=== PATIENT | female | born 1970 | race Caucasian/White ===

== ENCOUNTER 2018-11-14 23:29 | Emergency (ER) | payer MEDICAID ==
[~2018-11-14] VITALS: Ht 172.7 cm; Wt 81.8 kg
[~2018-11-14 23:29] MED LIST: CLIN300C19 PO
[2018-11-14 23:34] VITALS: BP 148/91
--- NOTE | 2018-11-14 23:54 | NUR ---
pt c/o right arm pain x 2 months. Hurts to lift/move it at the shoulder.
[2018-11-15] MEDS ORDERED: METH4TAB3 PO (00:28)
[2018-11-15] MEDS ORDERED: ketorolac tromethamine 15mg/ml inj. IM ONE (00:30)
[2018-11-15] MEDS ORDERED: triamcinolone acetonide 40mg/ml inj IM ONE (00:30)
== END 2018-11-15 00:46 | disposition home or self-care (01) ==
LOC: ER 23:30
DX: M75.22 Bicipital tendinitis, left shoulder (principal); F31.9 Bipolar disorder, unspecified; Z88.1 Allergy status to other antibiotic agents; Z79.2 Long term (current) use of antibiotics; Z79.899 Other long term (current) drug therapy
CPT/HCPCS: 96372; 99283; J1885; J3301

== ENCOUNTER 2020-01-11 10:09 | Emergency (ER) | payer MEDICAID ==
[~2020-01-11] VITALS: Ht 172.7 cm; Wt 86.4 kg
[~2020-01-11 10:09] MED LIST changes: +METH4TAB3 PO
[2020-01-11 10:23] VITALS: BP 146/81
== END 2020-01-11 11:13 | disposition home or self-care (01) ==
LOC: ER 10:10
DX: R06.02 Shortness of breath (principal); M79.10 Myalgia, unspecified site; R11.2 Nausea with vomiting, unspecified; Z20.828 Contact with and (suspected) exposure to other viral communicable diseases; F31.9 Bipolar disorder, unspecified; Z88.0 Allergy status to penicillin; Z88.1 Allergy status to other antibiotic agents; Z79.2 Long term (current) use of antibiotics; Z79.899 Other long term (current) drug therapy
CPT/HCPCS: 36415; 99281

== ENCOUNTER 2020-07-11 12:17 | Inpatient (IN) | payer MEDICAID ==
[2020-07-11] VITALS (11 sets, daily range): BP systolic 113–153; BP diastolic 65–98
[~2020-07-11] VITALS: Ht 172.7 cm; Wt 85.0 kg
[2020-07-11 12:59] LABS: BASOPHILS # (AUTO) 0.1 X10'3 (0-0.2); EOSINOPHILS % (AUTO) 1.5 % (0-6); LYMPHOCYTES # (AUTO) 0.6 X10'3 (1.1-4.8); LYMPHOCYTES % (AUTO) 19.4 % (21-51); MEAN CORPUSCULAR HEMOGLOBIN 19.7 PG (27.0-31.0); MEAN CORPUSCULAR HGB CONC 29.4 g/dL (33.0-36.5); MEAN CORPUSCULAR VOLUME 67.1 FL (78-98); MEAN PLATELET VOLUME 8.8 FL (7.4-10.4); MONOCYTES # (AUTO) 0.3 X10'3 (0-0.9); MONOCYTES % (AUTO) 10.3 % (2-12); NEUTROPHILS % (AUTO) 66.3 % (42-75); PLATELET COUNT 183 X10'3 (140-440); RED BLOOD COUNT 2.51 X10'6 (4.20-5.60); RED CELL DISTRIBUTION WIDTH 21.7 % (11.5-14.5); WHITE BLOOD COUNT 3.1 X10'3 (4.5-11.0)
[2020-07-11 13:03] LABS: BASOPHILS % (AUTO) 1.8 % (0-1); HEMATOCRIT 16.9 % (35.0-45.0)
[2020-07-11 13:10] LABS: ALANINE AMINOTRANSFERASE 20 U/L (12-78); ALBUMIN 3.3 G/DL (3.4-5.0); ALBUMIN/GLOBULIN RATIO 1.1 (1.1-1.5); ALKALINE PHOSPHATASE 49 IU/L (46-116); ANION GAP 9 (8-16); ASPARTATE AMINO TRANSFERASE 14 U/L (10-37); BILIRUBIN,TOTAL 0.3 MG/DL (0.1-1.0); BLOOD UREA NITROGEN 13 MG/DL (7-18); BUN/CREATININE RATIO 21.7 (6.6-38.0); CALCIUM 8.3 MG/DL (8.5-10.1); CHLORIDE 107 MMOL/L (99-107); GLUCOSE 88 MG/DL (70-104); POTASSIUM 3.7 MMOL/L (3.5-5.1); SODIUM 140 MMOL/L (135-145); TOTAL CARBON DIOXIDE 24.2 MMOL/L (24-32); TOTAL PROTEIN 6.4 G/DL (6.4-8.2); eGFR > 90 ML/MIN
[2020-07-11 13:30] LABS: ANISOCYTOSIS 3+; ELLIPTOCYTES FEW; HYPOCHROMASIA 2+; MICROCYTOSIS 2+; PLATELET ESTIMATE NORMAL
[2020-07-11 13:31] LABS: LARGE PLATELETS FEW; POLYCHROMASIA 1+
[2020-07-11 13:32] LABS: TEAR DROP CELLS FEW
[2020-07-11] MEDS ORDERED: normal saline 1000ML IV soln IV ONE (14:05)
[2020-07-11] MEDS ORDERED: pantoprazole IV 80 MG in normal saline 100ml IV soln 100 ML IV ONE (14:05)
[2020-07-11] MEDS ORDERED: pantoprazole 40MG/NS 100ML BAG 100 ML IV ONE ×2 (14:10→14:30)
[2020-07-11 14:49] LABS: CLARITY,URINE SLIGHTLY CLOUDY (Clear); COLOR,URINE STRAW (Yellow); GLUCOSE, URINE NEGATIVE (Neg); KETONES,URINE NEGATIVE (Neg); LEUKOCYTE ESTERASE ,URINE NEGATIVE (Neg); NITRITES, URINE NEGATIVE (Neg); OCCULT BLOOD,URINE NEGATIVE (Neg); PH,URINE 5.5 (4.8-8.0); PROTEIN,URINE NEGATIVE (Neg); UROBILINOGEN,URINE 0.2 E.U/dL (0.2-1.0)
[2020-07-11 14:50] LABS: UA COLLECTION TYPE CLN CATCH MIDSTREAM
[2020-07-11 14:57] LABS: SQUAMOUS EPITHELIAL CELL,UR MANY /LPF (FEW)
[2020-07-11 14:58] LABS: BACTERIA,URINE FEW /HPF (Neg); RBC,URINE NONE SEEN /HPF (0-2); WBC,URINE 0-4 /HPF (0-4)
[2020-07-11] MEDS ORDERED: acetaminophen 325mg tablet PO PRN ×2 (15:40)
[2020-07-11] MEDS ORDERED: HYDROcodone/acetaminophen 10/325mg tab PO PRN (15:40)
[2020-07-11] MEDS ORDERED: magnesium hydroxide 30ml (MOM) UD suspension PO PRN (15:40)
[2020-07-11] MEDS ORDERED: ondansetron/PF 4mg/2ml inj IV PRN (15:40)
[2020-07-11] MEDS ORDERED: HYDROcodone/acetaminophen 5mg/325mg tablet PO PRN (15:40)
[2020-07-11] MEDS ORDERED: morphine 2 MG/ML inj. syringe IV PRN ×2 (15:40)
[2020-07-11] MEDS ORDERED: mag hydrox/Alum hydrox/simeth 30ml oral suspension PO PRN (15:40)
--- NOTE | 2020-07-11 15:45 | NUR ---
Dr Amezcua at bedside.
[2020-07-11] MEDS ORDERED: CHOL100046 PO (15:53)
[2020-07-11] MEDS ORDERED: AMBEREN PO (15:53)
[2020-07-11] MEDS ORDERED: iohexol 300mg/ml 100ml inj. ONE (16:36)
--- NOTE | 2020-07-11 17:02 | NUR ---
Patient in room [facility]. I have received report from EULA NOLASCO FROM ER and had the opportunity to ask questions and assume patient care.
--- NOTE | 2020-07-11 18:02 | NUR ---
Problems reprioritized. Patient report given, questions answered & plan of care reviewed with EULA STEVENSON.
[2020-07-12] VITALS (9 sets, daily range): BP systolic 124–163; BP diastolic 74–95
[2020-07-12 06:13] LABS: ALBUMIN 2.8 G/DL (3.4-5.0); ANION GAP 9 (8-16); BLOOD UREA NITROGEN 9 MG/DL (7-18); BUN/CREATININE RATIO 13.2 (6.6-38.0); CHLORIDE 109 MMOL/L (99-107); CREATININE 0.68 MG/DL (0.40-0.90); GLUCOSE 87 MG/DL (70-104); POTASSIUM 3.8 MMOL/L (3.5-5.1); SODIUM 141 MMOL/L (135-145); TOTAL CARBON DIOXIDE 22.6 MMOL/L (24-32); eGFR > 90 ML/MIN
[2020-07-12 06:16] LABS: BASOPHILS # (AUTO) 0.1 X10'3 (0-0.2); BASOPHILS % (AUTO) 1.8 % (0-1); EOSINOPHILS # (AUTO) 0.1 X10'3 (0-0.9); EOSINOPHILS % (AUTO) 2.3 % (0-6); LYMPHOCYTES # (AUTO) 0.7 X10'3 (1.1-4.8); MEAN CORPUSCULAR HEMOGLOBIN 22.4 PG (27.0-31.0); MEAN CORPUSCULAR HGB CONC 31.2 g/dL (33.0-36.5); MEAN CORPUSCULAR VOLUME 71.7 FL (78-98); MONOCYTES # (AUTO) 0.5 X10'3 (0-0.9); MONOCYTES % (AUTO) 10.7 % (2-12); NEUTROPHILS # (AUTO) 3.4 X10'3 (1.8-7.7); NEUTROPHILS % (AUTO) 70.2 % (42-75); PLATELET COUNT 149 X10'3 (140-440); RED CELL DISTRIBUTION WIDTH 23.3 % (11.5-14.5); WHITE BLOOD COUNT 4.8 X10'3 (4.5-11.0)
[2020-07-12 06:21] LABS: HEMOGLOBIN 6.7 g/dl (12.0-16.0)
[2020-07-12 06:22] LABS: HEMATOCRIT 21.5 % (35.0-45.0)
--- NOTE | 2020-07-12 06:24 | NUR ---
Patient in room [facility]. I have received report from Jason FORDE and had the opportunity to ask questions and assume patient care.
--- NOTE | 2020-07-12 06:29 | NUR ---
Problems reprioritized. Patient report given, questions answered & plan of care reviewed with KANNAN. Addendum: 07/12/20 at 0630 by Dustin Edmonds RN Amended: Links added.
[2020-07-12 09:22] LABS: ANISOCYTOSIS 3+; MICROCYTOSIS 1+; PLATELET ESTIMATE NORMAL
[2020-07-12 09:23] LABS: ELLIPTOCYTES FEW; SCHISTOCYTES FEW
[2020-07-12 09:24] LABS: HYPOCHROMASIA 2+
--- NOTE | 2020-07-12 09:58 | NUR ---
Was unable to reach Dr. Hansen by phone at [phone]. Voicemail was full. Was calling to confirm need for MRI. Addendum: 07/12/20 at 1110 by Veronica Godienz RN Talk to Dr. Hansen and confirmed there is no longer a need for MRI due to CT with contrast being done. Informed her that patient was receiving 1 unit of PRBC. H/H 6.7/21.5.
--- NOTE | 2020-07-12 14:25 | NUR ---
PAGER ID: [phone] MESSAGE: [phone] RE: [facility] Patient Blood transfusion ended. Would you like a H&H drawn in 2 hours?
[2020-07-12] MEDS ORDERED: FERR-119 PO (17:29)
--- NOTE | 2020-07-12 18:49 | NUR ---
Patient was educated on follow up, worsening symptoms, and medications. Two Iv's were removed and canula was intact. Patient was taken down with by patient child care centre director.
--- NOTE | 2020-07-13 14:05 | NUR ---
CASE MANAGEMENT DISCHARGE FOLLOW UP: T/c to pt, no answer, left message requesting callback. Addendum: 07/13/20 at 1416 by Mago Gallegos RN [id number] Received return call from pt. Reports that she is doing good, some occasional SOB with exertion that resolves quickly with rest; denies CP, fever/chills, dizziness. Verbalizes understanding of s/sx requiring further evaluation/emergent assistance. Verbalizes understanding of medications, educated pt on avoiding foods high in calcium at time of iron supplementation and instead choosing items high in Vitamin C for better iron absorption, she verbalizes understanding. Verbalizes compliance with MD discharge instructions. Verbalizes understanding of the importance in making/keeping follow-up appointments, will see Dr Hansen tomorrow. Pt states that she will also be going back to work tomorrow. States no further questions/concerns at this time.
== END 2020-07-12 18:04 | disposition home or self-care (01) | DRG 663 ==
LOC: ER 12:17 → ED HOLD 15:36 → SUR 3N 17:41
PROVIDERS: ADMIT Internal Medicine; ATTEND Internal Medicine
PROC: 30233N1 Transfusion of Nonautologous Red Blood Cells into Peripheral Vein, Percutaneous Approach (ICD-10-PCS; principal; 2020-07-11)
PROC: BW211ZZ Computerized Tomography (CT Scan) of Abdomen and Pelvis using Low Osmolar Contrast (ICD-10-PCS; 2020-07-11)
DX: D62 Acute posthemorrhagic anemia (principal); D25.9 Leiomyoma of uterus, unspecified; F32.9 Major depressive disorder, single episode, unspecified; K44.9 Diaphragmatic hernia without obstruction or gangrene; R55 Syncope and collapse; N93.9 Abnormal uterine and vaginal bleeding, unspecified; K57.90 Diverticulosis of intestine, part unspecified, without perforation or abscess without bleeding; N92.0 Excessive and frequent menstruation with regular cycle; Z88.1 Allergy status to other antibiotic agents; Z88.8 Allergy status to other drugs, medicaments and biological substances; Z98.51 Tubal ligation status; Z79.899 Other long term (current) drug therapy
CPT/HCPCS: 36415; 36430; 71045; 74177; 76856; 80048; 80053; 81001; 85008; 85025; 85610; 86885; 86900; 86901; 86920; 87081; 87635; 96365; 99291; C9113; G0378; J7030; P9016; Q9967

== ENCOUNTER 2022-03-15 14:19 | Emergency (ER) | payer MEDICAID ==
[~2022-03-15] VITALS: Ht 172.7 cm; Wt 86.4 kg
[~2022-03-15 14:19] MED LIST changes: +AMBEREN PO; +CHOL100046 PO; -CLIN300C19 PO; +FERR-119 PO; -METH4TAB3 PO
[2022-03-15 14:49] VITALS: BP 169/98
[2022-03-15 19:28] LABS: BASOPHILS % (AUTO) 0.4 % (0-1); EOSINOPHILS % (AUTO) 0.3 % (0-6); HEMATOCRIT 41.9 % (35.0-45.0); HEMOGLOBIN 13.3 g/dl (12.0-16.0); LYMPHOCYTES # (AUTO) 0.8 X10'3 (1.1-4.8); LYMPHOCYTES % (AUTO) 7.4 % (21-51); MEAN CORPUSCULAR HEMOGLOBIN 26.3 PG (27.0-31.0); MEAN CORPUSCULAR HGB CONC 31.8 g/dL (33.0-36.5); MEAN CORPUSCULAR VOLUME 82.7 FL (78-98); MEAN PLATELET VOLUME 9.1 FL (7.4-10.4); MONOCYTES # (AUTO) 0.7 X10'3 (0-0.9); MONOCYTES % (AUTO) 6.5 % (2-12); NEUTROPHILS % (AUTO) 85.4 % (42-75); PLATELET COUNT 204 X10'3 (140-440); RED BLOOD COUNT 5.07 X10'6 (4.20-5.60); RED CELL DISTRIBUTION WIDTH 15.1 % (11.5-14.5); WHITE BLOOD COUNT 10.5 X10'3 (4.5-11.0)
[2022-03-15 19:42] LABS: ALANINE AMINOTRANSFERASE 19 U/L (12-78); ALBUMIN 3.5 G/DL (3.4-5.0); ALBUMIN/GLOBULIN RATIO 0.9 (1.1-1.5); ALKALINE PHOSPHATASE 72 IU/L (46-116); ANION GAP 10 (8-16); ASPARTATE AMINO TRANSFERASE 16 U/L (10-37); BILIRUBIN,TOTAL 0.3 MG/DL (0.1-1.0); BLOOD UREA NITROGEN 6 MG/DL (7-18); BUN/CREATININE RATIO 8.8 (6.6-38.0); C-REACTIVE PROTEIN 2.28 MG/DL (0.0-0.5); CALCIUM 8.8 MG/DL (8.5-10.1); CHLORIDE 103 MMOL/L (99-107); CREATININE 0.68 MG/DL (0.40-0.90); GLUCOSE 99 MG/DL (70-104); POTASSIUM 3.7 MMOL/L (3.5-5.1); SODIUM 137 MMOL/L (135-145); TOTAL CARBON DIOXIDE 23.7 MMOL/L (24-32); TOTAL PROTEIN 7.5 G/DL (6.4-8.2); eGFR > 90 ML/MIN
[2022-03-15] MEDS ORDERED: TRAM1TAB7 PO (21:50)
[2022-03-15] MEDS ORDERED: traMADol 50MG tablet PO ONE (21:50)
== END 2022-03-15 22:13 | disposition home or self-care (01) ==
LOC: ER 14:19
DX: M75.31 Calcific tendinitis of right shoulder (principal); F31.9 Bipolar disorder, unspecified; D64.9 Anemia, unspecified; Z88.1 Allergy status to other antibiotic agents; Z88.8 Allergy status to other drugs, medicaments and biological substances; Z79.899 Other long term (current) drug therapy
CPT/HCPCS: 73020; 73030; 73200; 80053; 85025; 85651; 86140; 99285; A4565